=== PATIENT | female | born 1965 ===

== ENCOUNTER 2018-04-22 10:03 | Emergency (ER) | payer OTHER ==
[2018-04-22 12:01] VITALS: BP 156/96
--- NOTE | 2018-04-22 12:31 | UC ---
Respiratory Complaint HPI - HPI Summary HPI Summary: 53-year-old female presents with onset of URI symptoms 5 days ago including nasal congestion, postnasal drip, bilateral your fullness, sore throat, and a nonproductive cough. States over last 3 days her cough has become more persistent, feels mildly short of breath, and has some chest tightness. Associated with a subjective fever. Denies chest pain, abdominal pain, nausea, or vomiting. - History of Current Complaint Chief Complaint: UCGeneralIllness Stated Complaint: CONGESTION COUGH Time Seen by Provider: 04/22/18 12:08 Hx Obtained From: Patient Hx Last Menstrual Period: no periods - had ablation 1996 Onset/Duration: Gradual Onset, Lasting Days - 5 Pain Intensity: 0 Character: Cough: Nonproductive Aggravating Factors: Recumbent Position Alleviating Factors: Nothing Associated Signs And Symptoms: Positive: Dyspnea, Fever, Chills, URI, Nasal Congestion. Negative: Pleuritic Chest Pain, Wheezing, Hemoptysis - Allergies/Home Medications Allergies/Adverse Reactions: Allergies Allergy/AdvReac Type Severity Reaction Status Date / Time No Known Allergies Allergy Verified 04/22/18 11:52 Home Medications: Home Medications Dm/Pseudoephed/Acetaminophen [Day-Time Multi-Symptom Co] 1 cap PO ONCE 04/22/18 [History Confirmed 04/22/18] PMH/Surg Hx/FS Hx/Imm Hx Previously Healthy: Yes - Denies significant PMH - Surgical History Surgical History: None - Family History Family History: Noncontributory - Social History Occupation: Employed Full-time Lives: With Family Alcohol Use: None Substance Use Type: None Smoking Status (MU): Never Smoked Tobacco Review of Systems Constitutional: Fever, Chills, Fatigue Skin: Negative Eyes: Negative ENT: Sore Throat, Ear Ache, Nasal Discharge, Sinus Congestion Respiratory: Shortness Of Breath, Cough Cardiovascular: Negative Gastrointestinal: Negative Is Patient Immunocompromised?: No All Other Systems Reviewed And Are Negative: Yes Physical Exam Triage Information Reviewed: Yes Appearance: Well-Appearing, No Pain Distress, Well-Nourished Vital Signs: Initial Vital Signs Temp 98.8 F 04/22/18 11:53 Pulse 80 04/22/18 11:53 Resp 16 04/22/18 11:53 BP 156/96 04/22/18 11:53 Pulse Ox 100 10/23/18 11:53 Eyes: Positive: Conjunctiva Clear. Negative: Discharge ENT: Positive: Hearing grossly normal, Pharyngeal erythema - Mild with postnasal drip, Nasal congestion, TMs normal, Uvula midline. Negative: Nasal drainage, Tonsillar swelling, Tonsillar exudate, Sinus tenderness Neck: Positive: Supple, Nontender, No Lymphadenopathy Respiratory: Positive: No respiratory distress, No accessory muscle use, Decreased breath sounds, Wheezing - bilateral occasional wheeze Cardiovascular: Positive: RRR, No Murmur Neurological: Positive: Alert Skin Exam: Normal UC Diagnostic Evaluation - Laboratory O2 Sat by Pulse Oximetry: 100 Respiratory Course/Dx - Course Course Of Treatment: 53 year old female with 5 day history of URI symptoms and 3 days of progressively worsening cough with SOB. Exam was consistent with URI and mild RAD. Will treat with course of doxycycline, 5 day course of prednisone , and albuterol inhaler PRN. She is to return or follow up with PCP if symptoms persist. Warning symptoms reviewed. Patient verbalizes understanding and agrees with POC. - Differential Dx/Diagnosis Provider Diagnoses: upper respiratory infection, reactive airway disease not asthma Discharge - Sign-Out/Discharge Documenting (check all that apply): Patient Departure All imaging exams completed and their final reports reviewed: No Studies - Discharge Plan Condition: Stable Disposition: HOME Prescriptions: Albuterol HFA INHALER* [Ventolin HFA Inhaler*] 2 puff INH Q4H PRN #1 mdi PRN Reason: Sob/Wheezing Doxycycline Hyclate 100 mg PO BID #14 tablet Fluticasone NASAL SPRAY 50MCG* [Flonase NASAL SPRAY 50MCG*] 2 spray BOTH NARES DAILY #1 btl Patient Education Materials: Upper Respiratory Infection (ED), Wheezing (ED) Referrals: No Primary Care Phys,NOPCP [Primary Care Provider] - Additional Instructions: Your symptoms appear to be from an upper respiratory infection that is causing some inflammation of your airways resulting in your chest tightness and the wheezes were heard on exam. This could be viral however with the worsening of your symptoms I will go ahead and treat you with an antibiotic. Start doxycycline 1 tablet twice a day for 7 days. Use fluticasone nasal spray 2 sprays each nostril once daily. I recommend using a saline rinse kit such as Netti Pot or NeilMed at least twice a day to help thin secretions and promote drainage. I have given you a prescription for an albuterol inhaler to help with the chest tightness and wheezing. Take 2 puffs every 4-6 hours as needed for any shortness of breath or wheezing. Follow-up with your primary care provider in 7 days if symptoms persist. Seek immediate medical attention in the emergency room if you develop fever greater than 100.5, develop chest pain, have persistent shortness of breath or wheezing despite using albuterol inhaler, or any worsening of symptoms. - Billing Disposition and Condition Condition: STABLE Disposition: Home
== END 2018-04-22 12:30 | disposition home or self-care (01) ==
LOC: UCEAST 10:03
DX: J06.9 Acute upper respiratory infection, unspecified (principal); J98.8 Other specified respiratory disorders
CPT/HCPCS: 99202; G0463